=== PATIENT | female | born 1965 | race Two or more races ===

== ENCOUNTER 2025-07-10 10:25 | Emergency (ER) | payer MEDICAID, SELFPAY ==
[2025-07-10 11:01] VITALS: BP 149/82; PULSE 73; RESP 16; TEMP 37; O2SAT 96; BMI 30.2
--- NOTE | 2025-07-10 11:19 | XR_ITS ---
Examination: Right ankle 2 views Technique one AP lateral right ankle 2 views Date and time: July 10, 2025 at 11:30 AM INDICATIONS: Right ankle pain and swelling post injury today. FINDINGS: Severe osteopenia. No ankle fracture or dislocation 10 mm plantar bony calcaneal spur 10 mm posterior bony calcaneal spur Mild narrowing tibiotalar joint IMPRESSION: No fracture. No opaque foreign body. Large plantar posterior bony calcaneal spurs
--- NOTE | 2025-07-10 11:19 | PD.EDANKLE ---
Lower Extremity Injury RME/HPI General Chief Complaint: Ankle/Foot Injury Stated Complaint: PAIN/SWELLING IN FEET FROM GLASS Time Seen by Provider: 07/10/25 11:12 Source: patient Arrival date/time: 07/10/25 10:25 Mode of arrival: ambulatory Limitations: no limitations RME / HPI Type of Injury: laceration Place: home Related Data Home Medications ?Medication ?Instructions ?Recorded ?Confirmed ACTOPLUS ##0 06/27/09 11/10/19 RANITIDINE ##0 06/27/09 11/10/19 Aspirin (Aspirin Ec Low Dose) 81 mg PO DAILY ##0 09/16/09 11/10/19 Previous Rx's ?Medication ?Instructions ?Recorded cephalexin 500 mg capsule 500 mg PO Q8H #30 caps 07/10/25 mupirocin 2 % topical ointment 1 applic topical BID #15 grams 07/10/25 Allergies Allergy/AdvReac Type Severity Reaction Status Date / Time No Known Allergies Allergy Verified 07/10/25 10:32 Review of Systems Constitutional Constitutional: Reports system reviewed and no additional complaints, except as documented Eyes Eyes: Reports system reviewed and no additional complaints, except as documented, Denies dry eyes, Denies exophthalmos and Reports floaters Cardiovascular Cardiovascular: Denies chest pain with activity and Denies claudication ED Exam Narrative Physical exam: The right ankle is positive for a lesion that is that or proximal to the extending. There is a scab atop the lesion. It is surrounded by erythema. General Limitations: Present no limitations General appearance: Present alert and in no apparent distress Head Head exam: Present atraumatic Eye Eye exam: Present normal appearance and EOMI ENT ENT exam: Present normal exam, normal oropharynx and mucous membranes moist Neck Neck exam: Present normal inspection, full ROM and trachea midline Chest Chest inspection: Present normal inspection and symmetric chest wall rise Respiratory Respiratory exam: Present normal lung sounds bilaterally Extremities Exam Extremities exam: Present normal inspection and full ROM Back Exam Back exam: Present normal inspection and full ROM Neurological Exam Neurological exam: Present alert and oriented X3 Psychiatric Psychiatric exam: Present normal affect and normal mood Skin Skin exam: Present warm, dry, intact and normal color Course Course Course Narrative: Patient will have an x-ray of her right ankle, of the right ankle will be dressed with Neosporin or triple ointment antibiotic. Quality Measures none Orders Category Date Time Status Dress wound [Wound Care] NOW Care 07/10/25 11:50 Active XR ankle RT 2V Stat Exams 07/10/25 11:19 Completed Dressed the right ankle with triple ointment antibiotic. Vital Signs Vital signs: Vital Signs Temperature 98.6 F 07/10/25 11:01 Pulse Rate 73 07/10/25 11:01 Respiratory Rate 16 07/10/25 11:01 Blood Pressure 149/82 H 07/10/25 11:01 Pulse Oximetry (%) 96 07/10/25 11:01 Oxygen Delivery Method Room Air 07/10/25 11:01 Pulse ox is 96% Extremity Injury, Lower MDM Narrative MDM Narrative:: Patient will have her right cleaned up and dressed and then she will be discharged with no apparent distress. She has follow-up primary care physician within a week or sooner if worse Patient data External records reviewed:: Other (specify) (NA) Clinical information provided by:: none (NA) Social determinants that could affect healthcare access:: none Patient has the following chronic illnesses:: NA How is presenting disease/condition affected by chronic disease/condition?: no chronic disease (Diabetes type 2) Evaluation data The following diagnostics were reviewed and interpreted by me:: other (specify) (NA) Lab and/or radiology exams considered but not ordered:: NA Interpretation Summary: NA Medications / Prescriptions Medications or Prescriptions considered but not ordered:: NA Medication administrations:: NA Consultations Consultation(s) initiated? (list below): No Diagnosis Extremity Injury, Lower Differential Diagnosis: acute internal derangement of knee, fracture of femur, fracture of hip and puncture wound of foot Most likely diagnosis given after review of the tests above:: Cellulitis right ankle Admission Indicated Admission indicated?: not indicated Explain why admission is indicated or not indicated:: NA Admission Request Was there a request for admission?: No Disposition Plan Disposition Plan: Discharge Discharge Attestation Discharge Attestation: The patient and all family members were given an opportunity to ask questions and understood the discharge instructions. Discharge instructions specifically effects, indications for sooner follow up or return to the emergency department, and the expected course of current diagnosis. Patient condition: Stable Discharge Plan Plan Patient Disposition: HOME (Self Care) Discharge Disposition comment: Discharge in no apparent distress Patient condition on transfer: Stable Prescriptions/Referrals Prescriptions/Med Rec: New cephalexin 500 mg capsule 500 mg PO Q8H Qty: 30 0RF mupirocin 2 % ointment 1 applic topical BID Qty: 15 0RF No Action ACTOPLUS Qty: 0 RANITIDINE Qty: 0 Aspirin (Aspirin Ec Low Dose) 81 MG TABLET. 81 mg PO DAILY Qty: 0 Problem List Clinical Impression: Ankle sprain and strain, Cellulitis Patient/Caregiver Discharge Instructions Discharge Activity: activity as tolerated Print Language: Romansh Stand Alone Forms: Mely Award Info., Patient Portal Info Letter PA/SHIPYARD PAINTING SUPERVISOR Supervising Physician PA/SHIPYARD PAINTING SUPERVISOR Supervising Physician: Janes RAHMAN Attestation Attestation The patient was seen by the midlevel practitioner. I, the co-signing physician, was present during the entire ER visit. While I did not physically examine the patient, I was available for consultation as needed. I agree with the plan and documentation.
== END 2025-07-10 12:42 | disposition home or self-care (01) ==
PROVIDERS: Emergency Provider Physician Assistant; PCP Family Medicine
DX: S93.401A Sprain of unspecified ligament of right ankle, initial encounter (principal); X58.XXXA Exposure to other specified factors, initial encounter; L03.115 Cellulitis of right lower limb
CPT/HCPCS: 73600; 99284